=== PATIENT | male | born 1985 | race Caucasian/White ===

== ENCOUNTER → 2017-09-13 | Outpatient (CLI) | payer OTHER | LOC: BMCIMAGING 11:31 | PROVIDERS: ATTEND Internal Medicine | DX: M53.3 Sacrococcygeal disorders, not elsewhere classified (principal) ==

== ENCOUNTER 2017-09-15 14:34 | Emergency (ER) | payer OTHER ==
--- NOTE | 2017-09-15 16:18 | EDPHY ---
H & P Time Seen by Provider: 09/15/17 15:29 HPI/ROS: CHIEF COMPLAINT: Rectal pain with pus and bleeding HISTORY OF PRESENT ILLNESS: Patient tells me that he was snowboarding about 2 weeks ago and fell on his bottom. He describes pain and bleeding to the anal and buttock region. He states 4-5 days later the pain increased significantly and he noticed that there was some swelling and a bump on the left side. He was seen by his primary care physician, Dr. Meraz, on Sunday and x-rays were obtained of the coccyx which were negative. His primary care recommended ibuprofen. Today he was sitting for a median and pain was significant he did notice blood and pus in his underwear and came in for evaluation. He denies trouble with defecating although it has been painful. He denies constipation. He has had no nausea or vomiting. He has had no fevers or chills. Denies testicular scrotal pain. Patient is homosexual however has had no anal intercourse since this injury. Negative review of systems General Appearance: Alert, no distress. Eyes: Pupils equal and round no pallor or injection. ENT, Mouth: Mucous membranes moist. Respiratory: There are no retractions, lungs are clear to auscultation. Cardiovascular: Regular rate and rhythm. Gastrointestinal: Abdomen is soft and nontender, no masses, bowel sounds normal. Draining perirectal abscess on the left side with no surrounding cellulitis. No anal fissure. No active bleeding. Neurological: Alert, no neurologic deficits. Skin: Warm and dry, no rashes. Musculoskeletal: Neck is supple nontender. Extremities are symmetrical, full range of motion, no edema. Psychiatric: Patient is oriented X 3, there is no agitation. Medical/surgical history: Laparoscopic surgery for ingested foreign body with perforation. Social history: No tobacco, uses cannabis. Smoking Status: Former smoker Constitutional: Initial Vital Signs Temperature (C) 36.5 C 09/15/17 14:41 Heart Rate 71 09/15/17 14:41 Respiratory Rate 16 09/15/17 14:41 Blood Pressure 140/74 H 09/15/17 14:41 O2 Sat (%) 97 09/15/17 14:41 O2 Delivery Mode Room Air Allergies/Adverse Reactions: No Known Allergies Allergy (Unverified 09/15/17 14:41) Home Medications: Medication Instructions Recorded Ibuprofen 09/15/17 Medical Decision Making ED Course/Re-evaluation: Discussed with Dr. Ash at 16:10. Plan is for Sitz baths, no antibiotics, follow up with General surgery early next week. Discussed plan with patient. He understands. Differential Diagnosis: Differential diagnosis includes but is not limited to perirectal abscess, anal fissure, pilonidal cyst, gastrointestinal bleeding. After evaluation patient with draining perirectal abscess without signs of cellulitis or systemic involvement. Discussed with Dr. Ash, general surgery, and he recommends no antibiotics or intervention at this time. He does recommend frequent Sitz baths and close follow-up in the general surgery office next week. Discussed with patient in detail. Return precautions reviewed. Stable for discharge Departure - Departure Disposition: Home, Routine, Self-Care Clinical Impression: Renetta-rectal abscess Condition: Good Instructions: Anorectal Abscess and Anal Fistula (ED) Additional Instructions: Sitz baths daily as discussed. Follow up with Dr. Ash, call on Sunday for appointment. Return to the emergency department for increasing pain, fevers or other concerning new symptoms. Referrals: JAYESH KHALIL [Primary Care Provider] - As per Instructions Aram Ash MD [Medical Doctor] - As per Instructions
[2017-09-15 16:42] VITALS: BP 124/77
== END 2017-09-15 16:40 | disposition home or self-care (01) ==
DX: K61.1 Rectal abscess (principal); Z87.891 Personal history of nicotine dependence